=== PATIENT | female | born 1995 | race Caucasian/White ===

== ENCOUNTER → 2020-11-27 | Outpatient (CLI) | payer OTHER ==
[~2020-11-27] MED LIST: HYDROCODONE BIT1 T11 PO; MOTRIN800 MG PO; PENICILLIN VK500 MG PO; PRENATAL1 TA3 PO; Peridex 473 ML473 ML PO; TESSALON PERLE200 MG PO; ZITHROMAX Z PA250 MG PO; ZOFRAN4 MG PO
== END | disposition home or self-care (01) ==
LOC: LAB 15:11
PROVIDERS: ATTEND Obstetrics & Gynecology
DX: Z01.812 Encounter for preprocedural laboratory examination (principal); Z20.822 Contact with and (suspected) exposure to COVID-19; Z98.890 Other specified postprocedural states

== ENCOUNTER 2021-09-20 | Emergency (ER) | payer OTHER ==
[~2021-09-20] VITALS: Ht 175.2 cm; Wt 104.3 kg
[2021-09-20] MEDS ORDERED: PENICILLIN VK500 MG PO (00:11)
== END 2021-09-20 00:15 | disposition home or self-care (01) ==
LOC: ED
DX: K04.7 Periapical abscess without sinus (principal)

== ENCOUNTER 2021-12-30 13:18 | Emergency (ER) | payer OTHER ==
[~2021-12-30] VITALS: Ht 175.2 cm; Wt 110.2 kg
[2021-12-30 13:51] LABS: BILIRUBIN 1+ (Negative); BLOOD Negative (Negative); CLARITY Clear (Clear); COLOR Dark Yellow (Yellow); GLUCOSE Negative (Negative); KETONE Negative (Negative); LEUKO ESTERASE 1+ (Negative); NITRITE Positive (Negative); PH 6.5 (4.5-8.0); SPECIFIC GRAVITY 1.015 (1.001-1.030)
[2021-12-30 14:15] LABS: BACTERIA 1+; RBC 0-2 rbc/hpf (0-2); WBC 16-20 wbc/hpf (0-5)
[2021-12-30] MEDS ORDERED: MACRODANTIN100 M1 PO (14:25)
== END 2021-12-30 14:40 | disposition home or self-care (01) ==
LOC: ED 13:18
PROVIDERS: Nurse Practitioner Family
DX: O23.93 Unspecified genitourinary tract infection in pregnancy, third trimester (principal); Z3A.36 36 weeks gestation of pregnancy

== ENCOUNTER 2022-05-19 18:04 | Emergency (ER) | payer OTHER ==
[~2022-05-19] VITALS: Ht 167.6 cm; Wt 99.8 kg
[~2022-05-19 18:04] MED LIST changes: +MACRODANTIN100 M1 PO
[2022-05-19 18:51] LABS: BILIRUBIN Negative (Negative); BLOOD Negative (Negative); CLARITY Cloudy (Clear); COLOR Yellow (Yellow); GLUCOSE Negative (Negative); KETONE 2+ (Negative); LEUKO ESTERASE Trace (Negative); NITRITE Negative (Negative); PH 5.5 (4.5-8.0)
[2022-05-19 18:52] LABS: BASO % 0.2 % (0.0-1.0); LYMPH # 0.4 10*3/uL (1.3-4.4); LYMPH % 9.8 % (27.0-41.0); MEAN CELL VOLUME 83.3 fl (81.0-99.0); MEAN CORPUSCULAR HGB 27.1 pg (27.0-31.0); MEAN CORPUSCULAR HGB CONC 32.5 g/dl (33.0-37.0); MEAN PLATELET VOLUME 11.3 fl (9.6-12.3); MONO # 0.5 10*3/uL (0.1-1.0); MONO % 11.4 % (3.0-9.0); NEUT # 3.5 10*3/uL (2.3-7.9); NEUT % 78.2 % (47.0-73.0); PLATELET COUNT AUTOMATED 167 10*3/uL (130-400); RED BLOOD COUNT 4.32 10*6/uL (4.10-5.10); RED CELL DISTRI WIDTH 15.2 % (0-14.5); WHITE BLOOD COUNT 4.5 10*3/uL (4.8-10.8)
[2022-05-19 19:17] LABS: BACTERIA 2+
[2022-05-19 19:18] LABS: ALKALINE PHOSPHATASE 94 U/L (45-117); BUN 8 mg/dl (7-24); CHLORIDE 109 mmol/L (98-107); CREATININE 0.81 mg/dL (0.55-1.02); POTASSIUM 3.5 mmol/L (3.5-5.1); SGPT/ALT 19 U/L (12-78); SODIUM 140 mmol/L (136-145); TOTAL PROTEIN 7.9 gm/dL (6.4-8.2)
[2022-05-19 19:18] LABS: EPITHELIAL CELLS 16-20
[2022-05-19 19:19] LABS: HYALINE CAST 0-2
[2022-05-19] MEDS ORDERED: ONDANSETRON4 MG SL (19:55)
== END 2022-05-19 22:00 | disposition home or self-care (01) ==
LOC: ED 18:04
PROVIDERS: Nurse Practitioner Family
DX: J10.1 Influenza due to other identified influenza virus with other respiratory manifestations (principal); Z20.822 Contact with and (suspected) exposure to COVID-19

== ENCOUNTER 2022-08-14 22:29 | Emergency (ER) | payer OTHER ==
[~2022-08-14] VITALS: Ht 175.2 cm; Wt 104.3 kg
[~2022-08-14 22:29] MED LIST changes: +ONDANSETRON4 MG SL
[2022-08-14] MEDS ORDERED: AMOXICILLIN500 M2 PO (22:53)
[2022-08-14] MEDS ORDERED: IBUPROFEN600 MG PO (22:53)
== END 2022-08-14 23:01 | disposition home or self-care (01) ==
LOC: ED 22:29
DX: K08.89 Other specified disorders of teeth and supporting structures (principal)

== ENCOUNTER 2023-08-31 21:21 | Emergency (ER) | payer OTHER ==
[~2023-08-31] VITALS: Ht 172.7 cm; Wt 105.2 kg
[~2023-08-31 21:21] MED LIST changes: +AMOXICILLIN500 M2 PO; +IBUPROFEN600 MG PO
== END 2023-08-31 21:46 | disposition home or self-care (01) ==
LOC: ED 21:21
DX: O9A.211 Injury, poisoning and certain other consequences of external causes complicating pregnancy, first trimester (principal); S90.01XA Contusion of right ankle, initial encounter; Z79.2 Long term (current) use of antibiotics; Z79.899 Other long term (current) drug therapy; W18.39XA Other fall on same level, initial encounter; Y93.89 Activity, other specified; Y92.89 Other specified places as the place of occurrence of the external cause; Y99.8 Other external cause status

== ENCOUNTER → 2023-09-04 | Outpatient (CLI) | payer OTHER | END | disposition home or self-care (01) | LOC: US 16:00 | PROVIDERS: ATTEND Nurse Practitioner Women's Health | DX: O32.1XX0 Maternal care for breech presentation, not applicable or unspecified (principal); Z3A.16 16 weeks gestation of pregnancy ==

== ENCOUNTER 2023-12-23 21:48 | Emergency (ER) | payer OTHER ==
[~2023-12-23] VITALS: Ht 172.7 cm; Wt 145.1 kg
== END 2023-12-23 23:51 | disposition short-term general hospital (02) ==
LOC: ED 21:48
DX: O62.8 Other abnormalities of forces of labor (principal); Z3A.33 33 weeks gestation of pregnancy; Z79.899 Other long term (current) drug therapy; Z79.2 Long term (current) use of antibiotics

== ENCOUNTER 2024-11-08 19:09 | Emergency (ER) | payer OTHER ==
[~2024-11-08] VITALS: Ht 175.2 cm; Wt 95.3 kg
[2024-11-08] MEDS ORDERED: Acetaminophen/Hydrocodone 5 MG/325 MG TABLET PO ONE (19:30)
[2024-11-08] MEDS ORDERED: Ondansetron Hydrochloride 4 MG TAB SL ONE (19:30)
[2024-11-08] MEDS ORDERED: PENICILLIN V POTASSIUM 500 MG TAB PO ONE (19:30)
[2024-11-08] MEDS ORDERED: PENICILLIN VK500 MG PO (19:31)
== END 2024-11-08 19:34 | disposition home or self-care (01) ==
LOC: ED 19:09
DX: K02.9 Dental caries, unspecified (principal); Z79.899 Other long term (current) drug therapy

== ENCOUNTER → 2025-04-13 | Outpatient (CLI) | payer OTHER ==
[2025-04-13 10:25] LABS: BASO # 0.0 10*3/uL (0.0-0.1); BASO % 0.5 % (0.0-1.0); EOS # 0.1 10*3/uL (0.0-0.4); EOS % 1.7 % (1.0-4.0); MEAN CELL VOLUME 85.8 fl (81.0-99.0); MEAN CORPUSCULAR HGB 26.7 pg (27.0-31.0); MEAN PLATELET VOLUME 11.4 fl (9.6-12.3); MONO # 0.3 10*3/uL (0.1-1.0); MONO % 7.4 % (3.0-9.0); NEUT # 2.2 10*3/uL (2.3-7.9); NEUT % 54.3 % (47.0-73.0); NUCLEATED RED BLOOD CELL 0.0 % (0.0-0.0); NUCLEATED RED BLOOD CELL 0.0 10*3/uL (0.0-0.0); PLATELET COUNT AUTOMATED 224 10*3/uL (130-400); RED CELL DISTRI WIDTH 14.2 % (0-14.5)
[2025-04-13 11:42] LABS: VITAMIN D, 25-HYDROXY 34.7 ng/mL (30-100)
[2025-04-13 11:43] LABS: FREE T4 1.34 ng/dl (0.89-1.76); LDL CHOLESTEROL 94 mg/dL (9-159)
[2025-04-13 11:46] LABS: BUN < 5 mg/dl (9-23); SGPT/ALT < 7 U/L (5-49)
== END | disposition home or self-care (01) ==
LOC: LAB 10:00
PROVIDERS: ATTEND Physician Assistant
DX: Z51.81 Encounter for therapeutic drug level monitoring (principal)